=== PATIENT | female | born 1990 | race Caucasian/White ===

== ENCOUNTER → 2017-04-09 | Outpatient (CLI) | payer BC ==
[~2017-04-09] VITALS: Ht 25.4 cm; Wt 75.0 kg
[2017-04-09 20:09] VITALS: BP 119/68
== END ==
LOC: AMSURD 19:27 → RAD 19:27
DX: R07.89 Other chest pain (principal); R06.02 Shortness of breath

== ENCOUNTER 2022-05-10 22:52 | Emergency (ER) | payer BC ==
[~2022-05-10] VITALS: Wt 75.0 kg
[2022-05-10] MEDS ORDERED: BENZONATATE100 M2 (23:04)
[2022-05-10] MEDS ORDERED: AMOXICILLIN AND1 TA2 PO (23:49)
[2022-05-10] MEDS ORDERED: HYDROCODONE PO473 ML PO (23:49)
[2022-05-10 23:59] VITALS: BP 124/84
== END 2022-05-11 | disposition home or self-care (01) ==
LOC: ED 22:52
DX: H66.92 Otitis media, unspecified, left ear (principal); Z28.311 Partially vaccinated for COVID-19

== ENCOUNTER 2024-01-29 10:01 | Emergency (ER) | payer BC ==
[~2024-01-29 10:01] MED LIST: AMOXICILLIN AND1 TA2 PO; BENZONATATE100 M2; HYDROCODONE PO473 ML PO
[2024-01-29] MEDS ORDERED: NS 1,000 ML IV SCH ×2 (10:30→12:00)
[2024-01-29 10:39] LABS: HEMATOCRIT 34.6 % (37.0-47.0); HEMOGLOBIN 11.8 g/dL (12.5-16.0); MEAN CELL VOLUME 98 fl (78-100); MEAN CORPUSCULAR HEMOGLOBIN 33 pg (27-31); MEAN CORPUSCULAR HGB CONC 34 g/dL (33-37); MEAN PLATELET VOLUME 9.8 fl (7.4-10.4); PLATELET COUNT 170 K/mm3 (130-400); RED BLOOD COUNT 3.54 M/mm3 (4.10-5.30); RED CELL DISTRIBUTION WIDTH 12.3 % (11.5-14.5); WHITE BLOOD COUNT 8.4 K/mm3 (4.8-10.8)
[2024-01-29 10:44] LABS: ALBUMIN 3.6 g/dL (3.5-5.0)
[2024-01-29 10:45] LABS: CALCIUM 8.7 mg/dL (8.3-10.5)
[2024-01-29 10:46] LABS: TOTAL PROTEIN 6.3 g/dL (6.4-8.3)
[2024-01-29 10:56] LABS: URINE APPEARANCE CLOUDY (CLEAR); URINE BILIRUBIN 1+ (NEGATIVE); URINE COLOR DARK YELLOW (YELLOW); URINE GLUCOSE NEGATIVE (NEGATIVE); URINE KETONE 4+ (NEGATIVE); URINE NITRATE NEGATIVE (NEGATIVE); URINE PROTEIN(semi-quant) 1+ (NEGATIVE)
[2024-01-29 10:57] LABS: URINE BLOOD NEGATIVE (NEGATIVE); URINE LEUKOCYTE ESTERASE NEGATIVE (NEGATIVE); URINE MUCUS PRESENT (NOT PRESENT)
[2024-01-29] MEDS ORDERED: Calcium Carbonate Chewable 500 MG TAB PO ONE (11:00)
[2024-01-29] MEDS ORDERED: Ondansetron 4 MG/2 ML VIAL IV ONE (11:00)
[2024-01-29 11:03] LABS: LYMPHOCYTE 6 % (20-51); MONOCYTE 4 % (3-10); NEUTROPHILS 90 % (42-75)
[2024-01-29] MEDS ORDERED: cefTRIAXone 1 G in Water For Injection,Sterile 10 ML IV ONE (12:00)
[2024-01-29] MEDS ORDERED: MACROBID 100 M100 MG PO (12:03)
[2024-01-29 12:50] VITALS: BP 112/68
== END 2024-01-29 12:50 | disposition home or self-care (01) ==
LOC: ED 10:01
PROVIDERS: Family Medicine
DX: O21.9 Vomiting of pregnancy, unspecified (principal); O23.43 Unspecified infection of urinary tract in pregnancy, third trimester; Z3A.30 30 weeks gestation of pregnancy
CPT/HCPCS: J0696; J2405; J7030

== ENCOUNTER → 2024-06-29 | Outpatient (CLI) | payer BC ==
[~2024-06-29] MED LIST changes: +MACROBID 100 M100 MG PO
== END ==
LOC: LAB 17:44
DX: L08.9 Local infection of the skin and subcutaneous tissue, unspecified (principal)